=== PATIENT | female | born 1935 | race Caucasian/White ===

== ENCOUNTER 2019-08-22 12:40 | Inpatient (IN) ==
[2019-08-22] MEDS ORDERED: DILAUDID IV ONE (13:19)
[2019-08-22] MEDS ORDERED: ZOFRAN IV ONE (13:44)
--- NOTE | 2019-08-22 13:46 | Diag Imaging Result Doc PS360 ---
EXAM: CHEST-1 VIEW 08/22/2019 HISTORY: workup TECHNIQUE: AP chest COMMENT: There are no previous studies available for comparison. The thoracic spine is curved with convexity to the left. The heart size and pulmonary vascularity are within normal limits. There is an apparent old fracture of the lateral right third rib and possibly several of the posterior right ribs. There is generalized osteopenia. There are some calcified granulomata in the lower lobes. IMPRESSION: No acute abnormality. Electronically signed by Javier Adams 08/22/2019 1:44 PM
--- NOTE | 2019-08-22 13:47 | Diag Imaging Result Doc PS360 ---
EXAM: XRAY PELVIS W/HIP 2-3VW RT 08/22/2019 HISTORY: R hip pain/s/p fall TECHNIQUE: AP pelvis and right hip four views COMMENT: There is a fracture of the femoral neck on the right. There is generalized osteopenia. IMPRESSION: Right femoral neck fracture. Electronically signed by Javier Adams 08/22/2019 1:45 PM
--- NOTE | 2019-08-22 14:04 | EKG Report ---
Test Performed on : 08/22/2019 1:51:30 PM Test Reason : FALL Blood Pressure : / mmHG Vent. Rate : 101 BPM Atrial Rate : 101 BPM P-R Int : 134 ms QRS Dur : 072 ms QT Int : 356 ms P-R-T Axes : 079 072 072 degrees QTc Int : 461 ms Sinus tachycardia. Otherwise normal ECG No previous ECGs available Unconfirmed Result
--- NOTE | 2019-08-22 14:12 | PROVIDER DOCUMENTATION ---
This chart was entered by Danika Champion Scribe, acting as scribe for Seema Mckeon MD. HPI-Musculoskeletal Pain/Inj - GENERAL Stated Complaint: FALL Time Seen by Provider: 08/22/19 13:12 Source: patient - HX OF PRESENT ILLNESS-MUSKULOSKELTAL Nature of Presenting Problem: Patient is a 83 year old female who presents to the ED via EMS with right hip pain. States she tripped and fell landing on her right hip. Does not report any other injuries. Quality of Pain: reports: aching Severity in ED: mild Onset/Duration: just prior to arrival Timing: still present Any recent injury?: Yes (fall) Locality of Occurance: Home Similar Symptoms Previously?: No Recently seen or treated by another doctor?: No - FALL INJURY Location of Pain/Injury: reports: other (right hip) Pain Radiation: reports: no radiation Reason for Fall: reports: tripped Loss of Consciousness: no loss of consciousness - HIP/PELVIS PAIN/INJURY Hip Pain Location: reports: hip (R) Pain Radiation: reports: no radiation Context / Method of Injury: reports: fall - LOWER EXTREMITY PAIN/INJURY Lower Extremities Pain: hip: right Context / Method of Injury: reports: fell Review of Systems - Adult - REVIEW OF SYSTEMS - ADULT Constitutional: reports: no symptoms reported Eyes: reports: no symptoms reported Ears, Nose, Mouth & Throat: reports: no symptoms reported Cardiovascular: reports: no symptoms reported Respiratory: reports: no symptoms reported Gastrointestinal: reports: no symptoms reported Genitourinary: reports: no symptoms reported Musculoskeletal: reports: see HPI, other (right hip pain). denies: back pain, neck pain Integumentary: reports: no symptoms reported Neurological: reports: no symptoms reported Psychiatric: reports: no symptoms reported Endocrine: reports: no symptoms reported Hematologic/Lymphatic: reports: no symptoms reported Allergic/Immunologic: reports: no symptoms reported All Other Systems: Reviewed and Negative Past History - Adult - PAST MEDICAL HISTORY-ADULT Review of Records: reports: Old Records Reviewed, Nursing Assessment Review, Medications Reviewed, Social history reviewed & non-contributory. Major Childhood Illnesses: reports: denies history Cardiovascular: reports: HTN Respiratory: reports: denies history Gastrointestinal: reports: GERD Obstetrical/Gynecological: reports: denies history Genitourinary: reports: denies history Musculoskeletal: reports: denies history Neurological: reports: denies history Endocrine/Immune: reports: denies history Other Conditions: reports: denies history - PRIOR SURGERIES/PROCEDURES Surgical/Procedure History: reports: reviewed, not pertinent - IMMUNIZATION STATUS Childhood Immunizations: See Nurse Assessment Flu Vaccine: See Nurse Assessment - FAMILY HISTORY Family History: reviewed, not pertinent - SOCIAL HISTORY Smoking: denies Substance Use: denies Living Situation: family Physical Exam-Injury Related - Physical Exam-Injury Related Initial Vital Signs Reviewed: Yes General Appearance: alert, no apparent distress. negative: lethargic Respiratory: chest non-tender, lungs clear, normal breath sounds. negative: rhonchi, wheezing Cardiovascular: regular rate, rhythm, no gallop. negative: systolic murmur Abdominal Exam: normal bowel sounds, non tender, soft. negative: rigid Extremity: other (external rotation to right leg. decreased ROM to right leg due to pain in right hip). negative: swelling Integumentary: normal color, warm/dry. negative: ecchymosis, abrasion, laceration Neurologic: grossly normal. negative: aphasia, facial droop Psych/Mental Status: normal mood/affect, oriented x 3. negative: anxious Progress - PLAN OF CARE/RESULTS Progress/Plan/Lab Results: Orders Category Date Time Status Admit [facility] Routine AdmDCTranf 08/22/19 16:21 Active Activity - Strict Bedrest ORDERED Care 08/22/19 16:21 Completed Intake and Output-Strict ORDERED Care 08/22/19 16:21 Active Nursing- Assist w/ IS as order ORDERED Care 08/22/19 16:21 Active Nursing- MD Consult Request ROUTINE Care 08/22/19 16:21 Completed Nursing- Obtain EKG ONCE Care 08/22/19 13:17 Active Vital Signs Order Q 8-HR ASSESS Care 08/22/19 16:21 Active Z-Document. for Tele Applied ORDERED Care 08/22/19 16:21 Completed Physician/Provider Consults Routine Cons 08/22/19 16:21 Ordered Heart Healthy Diet Diet 08/22/19 16:21 Completed NPO Diet 08/23/19 00:01 Completed CHEST-1 VIEW [RAD] Stat Exams 08/22/19 13:17 Completed XRAY PELVIS W/HIP 2-3VW RT [RAD] Stat Exams 08/22/19 13:17 Completed CBC WITH DIFF [HEME] Routine Lab 08/23/19 05:50 Completed CBC WITH ELECTRONIC DIFF [HEME] Stat Lab 08/22/19 14:00 Completed COMPREHENSIVE METABOLIC PANEL [CHEM] Routine Lab 08/23/19 05:50 Completed COMPREHENSIVE METABOLIC PANEL [CHEM] Stat Lab 08/22/19 14:00 Completed MAGNESIUM [CHEM] Routine Lab 08/23/19 05:50 Completed PROTIME WITH INR [COAG] Stat Lab 08/22/19 14:00 Completed PTT [COAG] Stat Lab 08/22/19 14:00 Completed 0.9% Sodium Chloride Inj [Ns] 1,000 ml Med 08/23/19 00:01 Discontinued IV 75 mls/hr Acetaminophen [Tylenol] Med 08/22/19 16:21 Active 650 mg PO Q6H PRN PRN Amlodipine [Norvasc] Med 08/23/19 09:00 Active 5 mg PO DAILY Cyclobenzaprine [Flexeril] Med 08/22/19 21:00 Discontinued 10 mg PO QHS Dicyclomine [Bentyl] Med 08/22/19 16:21 Active 20 mg PO TID PRN PRN Fluoxetine [Prozac] Med 08/23/19 09:00 Active 20 mg PO DAILY Hydromorphone [Dilaudid] Med 08/22/19 13:19 Discontinued 1 mg IV NOW ONE Morphine Med 08/22/19 16:21 Discontinued 2 mg IV Q4H PRN PRN Omeprazole [Prilosec] Med 08/23/19 07:00 Active 40 mg PO DAILY@0700 Ondansetron [Zofran] Med 08/22/19 13:44 Discontinued 4 mg IV NOW ONE Ondansetron [Zofran] Med 08/22/19 16:21 Active 4 mg IV Q4H PRN PRN Incentive Spirometer Routine Oth 08/22/19 16:21 Completed Oxygen Device Routine Oth 08/22/19 16:21 Completed EKG [EKG] Stat Ther 08/22/19 13:17 Draft Transfer/Admit Order [TRANSFER] Routine Transfer 08/22/19 15:16 Completed Result Diagrams: 08/26/19 06:39 08/24/19 06:00 - EKG 1 Time of EKG reading by physician:: 13:56 EKG Read and Signed by:: Seema Mckeon (tachycardia, otherwise normal) EKG Interpretation (*Must complete 3 of following elements*): Normal Rate: 101 Rhythm: NSR with tachycardia [place]: normal QRS: normal SC Interval: normal Prior EKG Comparison: no prior EKG - XRAY 1 XRAY Study: Hip, Femur (EXAM: XRAY PELVIS W/HIP 2-3VW RT 08/22/2019 HISTORY: R h ip pain/s/p fall TECHNIQUE: AP pelvis and right hip four views COMMENT: There is a fracture of the femoral neck on the right. There is generalized osteopenia. IMPRESSION: Right femoral neck fracture. Electronically signed by Javier Adams 08/22/2019 1:45 PM 08/22/19 1345) Impression: See EMR Report 2 XRAY Study: Chest Impression: See EMR Report (EXAM: CHEST-1 VIEW 08/22/2019 HISTORY: workup TECHNIQUE: AP chest COMMENT: There are no previous studies available for comparison. The thoracic spine is curved with convexity to the left. The heart size and pulmonary vascularity are within normal limits. There is an apparent old fracture of the lateral right third rib and possibly several of the posterio r right ribs. There is generalized osteopenia. There are some calcified granulomata in the lower lobes. IMPRESSION: No acute abnormality. Electronically signed by Javier Adams 08/22/2019 1:44 PM) - CONSULTS/PCP/HOSPITALIST Notification #1 *Consult/PCP/Hospitalist*: PA for Dr. Hahn Time Discussed: 14:27 Consult Disposition: Admit, other (will see on the floor. can eat tonight) #2 Consult: Admit to hospitalist Time Discussed: 15:15 Consult Disposition: Will see in ED Departure - Departure Date of Disposition Decision: 08/22/19 Time of Disposition Decision: 14:13 DIAGNOSIS: Femoral neck fracture Disposition: ADMITTED INPATIENT 09 Certified Medical Emergency: Emergent Condition: Stable - Critical Care Note This patient required my direct & personal management of CC.: No Attestation - Physician/ BAHMAN Attestation Patient care was provided by Advanced Practice Provider:: No The physician spent face to face time with patient:: Yes Advanced Practice Provider documentation review:: Supervising physician onsite and consulted in the evaluation and care of this patient. The physician did have a face to face encounter with the patient. This chart was documented by the indicated scribe, (Danika Champion, [place]) and accurately reflects the services I performed and decisions made by me, Seema Mckeon MD, as attested by the provider's signature.
[2019-08-22 14:27] LABS: BASO# 0.02 X1000 (0.0-0.2); BASO% 0.1 % (0.0-0.8); EOS# 0.02 X1000 (0.0-0.7); EOS% 0.1 % (0.0-10.0); HEMATOCRIT 40.2 % (37.0-47.0); HEMOGLOBIN 13.1 g/dL (12.0-16.0); IMM GRAN# 0.06 X1000 (0.0-0.04); IMM GRAN% 0.3 % (0.0-0.5); LYMPH# 0.95 X1000 (1.2-3.4); LYMPH% 5.3 % (20.5-51.1); MCH 30.1 PG (27-31); MCHC 32.6 g/dL (33-37); MCV 92.4 FL (81-99); MONO% 4.5 % (1.7-9.3); MPV 13.1 FL (7.4-10.4); NEUT# 15.92 X1000 (1.4-6.5); NEUT% 89.7 % (42.2-75.2); PLT 144 X1000 (130-400); RBC 4.35 XMIL (4.2-5.4); RDW 13.6 % (11.5-14.5); WBC 17.77 X1000 (4.8-10.8)
[2019-08-22 14:48] LABS: ALB/GLOB RATIO 1.7; ALBUMIN 3.9 g/dL (3.5-5.0); CALCIUM 9.3 mg/dL (8.8-10.2); CREATININE 0.9 mg/dL (0.5-0.9); POTASSIUM 3.4 mmol/L (3.5-5.1); TOTAL BILIRUBIN 0.43 mg/dL (0.20-1.00); TOTAL PROTEIN 6.2 g/dL (6.3-8.3)
[2019-08-22 14:59] LABS: INR 1.03; PROTIME 13.6 Seconds (11.0-16.0)
[2019-08-22 15:00] LABS: PTT 29.2 Seconds (22.3-41.8)
[2019-08-22 16:05] LABS: URINE SOURCE CATH
[2019-08-22 16:13] LABS: BILIRUBIN URINE NEGATIVE (NEGATIVE); BLOOD URINE NEGATIVE (NEGATIVE); COLOR YELLOW; GLUCOSE URINE NEGATIVE (NEGATIVE); KETONE URINE 10 mg/dL (NEGATIVE); LEUKOCYTES URINE NEGATIVE (NEGATIVE); NITRITE URINE NEGATIVE (NEGATIVE); PH URINE 6.5; PROTEIN URINE 50 mg/dL (NEGATIVE); TURBIDITY URINE CLEAR (CLEAR); UR EPITHELIAL CELLS <10 /HPF (<10); URINE BACTERIA NEGATIVE /HPF; URINE RBC <10 /HPF (<10); URINE WBC <10 /HPF (<10); UROBILINOGEN URINE NORMAL (NORMAL)
[2019-08-22] MEDS ORDERED: TYLENOL PO PRN (16:21)
[2019-08-22] MEDS ORDERED: BENTYL PO PRN (16:21)
[2019-08-22] MEDS ORDERED: KLOR-CON PO ONE (17:05)
[2019-08-22] MEDS ORDERED: FLEXERIL PO PRN (17:11)
[2019-08-22] MEDS ORDERED: BLISTEX MEDICATED BERRY LIP BALM TOP PRN (18:03)
[2019-08-22] MEDS: MORPHINE IV PRN (18:37)
[2019-08-22] MEDS: ZOFRAN IV PRN (18:37)
[2019-08-22] MEDS: NS 1,000 ML IV SCH (18:38)
[2019-08-22] MEDS ORDERED: FLEXERIL PO SCH (21:00)
--- NOTE | 2019-08-22 22:14 | HISTORY AND PHYSICAL ---
PRIMARY CARE PROVIDERS: Yo Red MD. CHIEF COMPLAINT: Fall, right hip pain. HISTORY OF PRESENT ILLNESS: Ms. Carpio is an 83-year-old female who carries a past medical history of hypertension and dementia who reports that she was out in her backyard today. She got tripped on something and fell and was down on the wet concrete for at least 30 minutes up to an hour until her got back from [facility]. She reports she did not hit her head. She did not lose consciousness. There was no chest pain, dizziness or syncope prior to her fall. Workup in the ED showed a right femoral neck fracture. Laboratory data shows an elevated white count that appears to be reactive. Mild hypokalemia. She will be admitted to the surgical telemetry floor and will undergo her procedure in a.m. by Dr. Hahn. PAST MEDICAL HISTORY: Hypertension, dementia. PAST SURGICAL HISTORY: Cyst removal under her right cheek as a baby. SOCIAL HISTORY: is at bedside. No tobacco, alcohol or illicit drug use. FAMILY HISTORY: Reviewed and noncontributory. ALLERGIES: Codeine, Levaquin and Lexapro. HOME MEDICATIONS: Norvasc, Flexeril, Bentyl, Cymbalta, meloxicam and Prilosec. REVIEW OF SYSTEMS: Completely negative except for those mentioned in HPI. PHYSICAL EXAMINATION: VITAL SIGNS: Temperature is 97.5 degrees, heart rate 99, respirations 18, blood pressure 151/97, O2 is 95% on room air. GENERAL: Ms. Carpio is an 83-year-old female who is lying in the bed in no acute distress. HEENT: Atraumatic, normocephalic. PERRL. NECK: Supple. Trachea midline. CARDIOVASCULAR: S1, S2 appreciated. No murmurs, gallops, or rubs noted. RESPIRATORY: Lung sounds clear bilaterally. GI: Is soft, nontender, nondistended. Positive bowel sounds in 4 quadrants. EXTREMITIES: External rotation on the right leg. NEUROLOGIC: Patient is awake, alert, oriented. However, after receiving Dilaudid, she does feel that she is a little bit altered and unaware of the time. She does feel like it is slipping away from her. DIAGNOSTICS: Right hip and pelvis x-ray shows a right femoral neck fracture. LABORATORY DATA: White count 17, hemoglobin and hematocrit 13 and 40, platelet count is 144,000. Sodium 136, potassium 3.4, BUN 18, creatinine 0.9, blood glucose is 113. Urinalysis is negative. ASSESSMENT AND PLAN: 1. Status post mechanical fall. She has a right femoral neck fracture. Dr. Hahn has been consulted. She will be n.p.o. after midnight. Procedure in the a.m. We will continue with IV pain medication and antiemetics. 2. Hypertension. We will continue home Norvasc. 3. Reported dementia. 4. Mild hypokalemia. We will replenish p.o. Recheck in a.m. 5. Leukocytosis likely reactive. Chest x-ray was negative. 6. Further recommendation to follow physician evaluation, laboratory and diagnostic data. Dictated by SANDHYA Thorne for Raudel Voss MD cc: MD Yo Mcqueen MD Robert S. Tapscott, MD
--- NOTE | 2019-08-23 00:44 | HISTORY AND PHYSICAL ---
ADDENDUM I have seen and examined Ms. Carpio today. Her daughter was at the bedside at the time of the encounter. Ms Carpio presents because of status post mechanical fall. She thinks she probably entangled her feet with her flip-flop, fell down and sustained an injury to the right hip. She was brought into the emergency room. She was evaluated and found to have a right femoral neck fracture. The patient also has generalized osteopenia on the imaging study. OBJECTIVE: Vital signs: Blood pressure is 144/65, pulse of 90, respirations 18, temperature is 97.6 degrees. General: Shows Ms Carpio is an 83-year-old, elderly, female. She has looks well built. HEENT: Mucosa is pink but slightly dry. Anicteric. Acyanotic. Neck: Supple. Chest: Clear. Cardiovascular: Regular rate and rhythm. Abdomen: Soft. No hepatosplenomegaly. Extremities: The right lower extremity looks shortened and is laterally extended. LABORATORY DATA: Has also been reviewed. Slight leukocytosis, which I think is probably reactive. Potassium is slightly low. IMAGING STUDIES: Have also been reviewed, including a chest x-ray which showed no acute abnormality. A pelvic x-ray has been reviewed. An EKG shows a normal sinus rhythm, slightly tachycardic but at baseline was a lot of fatty farts, but no acute changes found. HOME MEDICATIONS: Have also been reviewed. ASSESSMENT: 1. Status post mechanical fall resulting into a right femoral neck fracture. Patient is evaluated by Orthopedics, there is a plan for intervention tomorrow afternoon. 2. Hypertension. We will continue with home medications including amlodipine, however, this will be withheld tomorrow morning for surgery. 3. Clinical volume depletion. Will continue with IV fluids. 4. Leukocytosis. Presumably reactive. 5. Hypokalemia. We will replace this and repeat it tomorrow morning. PERIOPERATIVE EVALUATION: Ms. Carpio is an 83-year-old female. She has a history of chronic essential hypertension which is controlled. No heart issues. No kidney problems. Never had any long-term lung issues and she is not on any anticoagulants. Ms Carpio is a low risk patient for an intermediate nonvascular surgical procedure. I think the procedure is urgent to maintain adequate functionality. We recommend surgery to proceed. Please refer to the details of the history and physical that have been dictated by the [facility] TE[employer]ER. I have reviewed this and I have also discussed the plan with her. cc: Raudel Voss MD [facility]PITALBhavin
--- NOTE | 2019-08-23 02:09 | ORTHOPAEDICS CONSULTATION ---
DATE: 08/22/2019 CHIEF COMPLAINT: Right hip pain. HISTORY OF PRESENT ILLNESS: Patient is an 83-year-old female who is status post fall landing on the right hip earlier today. She developed immediate pain and discomfort in her right hip. She denies loss consciousness. She presented to the emergency room, x-rays were obtained and revealed a right displaced femoral neck fracture. She was admitted to the hospital and Orthopedic consultation was requested. HOME MEDICATIONS: Meloxicam 7.5 mg p.o. daily, Bentyl 10 mg p.o. t.i.d. p.r.n., fluoxetine HCL 20 mg p.o. daily, omeprazole 40 mg p.o. daily, amlodipine besylate 5 mg p.o. daily, Flexeril 10 mg p.o. at bedtime. ALLERGIES: Codeine, levofloxacin, escitalopram. PAST MEDICAL HISTORY: Hypertension, gastroesophageal reflux disease. PAST SURGICAL HISTORY: None. PHYSICAL EXAMINATION: General: Patient is awake, alert, and cooperative with exam. Musculoskeletal: Cervical spine is nontender to palpation. Bilateral upper extremities nontender to palpation throughout. Good range of motion. Her right lower extremity is shortened and externally rotated. There is tenderness to palpation in the right hip. Pain pain with gentle movement. Calf is soft. She has active dorsiflexion and plantar flexion. She is grossly neurovascularly intact. The left lower extremity and nontender palpation along the hip, knee, or ankle. She has active dorsiflexion and plantar flexion. Neurovascularly intact distally. IMAGING: X-rays of right hip revealed a right displaced femoral neck fracture. IMPRESSION: Right displaced femoral neck fracture. PLAN: At this point, discussed treatment options with patient and family. At this time, would recommend to proceed with hemiarthroplasty of the right hip. Risks, benefits of surgery were explained, including risks of anesthesia, , bleeding, infection, fairly to relieve pain, postoperative stiffness, nerve injury, blood clots, dislocation and other imponderables. All questions were answered. The patient and family agree with treatment plan. I will proceed with surgery tomorrow, if she is medically cleared. cc: Yo Hahn MD
[2019-08-23] MEDS: MORPHINE IV PRN ×3 (02:36→23:36)
[2019-08-23] MEDS: PRILOSEC PO SCH (06:46)
[2019-08-23 06:52] LABS: BASO# 0.02 X1000 (0.0-0.2); BASO% 0.2 % (0.0-0.8); EOS# 0.02 X1000 (0.0-0.7); EOS% 0.2 % (0.0-10.0); HEMOGLOBIN 12.2 g/dL (12.0-16.0); LYMPH% 14.9 % (20.5-51.1); MCH 29.9 PG (27-31); MCHC 31.3 g/dL (33-37); MCV 95.6 FL (81-99); MONO# 0.78 X1000 (0.11-0.59); MONO% 8.3 % (1.7-9.3); MPV 12.6 FL (7.4-10.4); NEUT# 7.18 X1000 (1.4-6.5); NEUT% 76.4 % (42.2-75.2); PLT 128 X1000 (130-400); RBC 4.08 XMIL (4.2-5.4); RDW 13.9 % (11.5-14.5)
[2019-08-23] MEDS: NS 1,000 ML IV SCH ×4 (07:02→23:37)
[2019-08-23 07:08] LABS: ALB/GLOB RATIO 2.1; ALBUMIN 3.9 g/dL (3.5-5.0); CALCIUM 9.2 mg/dL (8.8-10.2); CREATININE 0.9 mg/dL (0.5-0.9); POTASSIUM 4.9 mmol/L (3.5-5.1); TOTAL BILIRUBIN 0.65 mg/dL (0.20-1.00); TOTAL PROTEIN 5.8 g/dL (6.3-8.3)
[2019-08-23] MEDS: PROZAC PO SCH (08:18)
[2019-08-23] MEDS: NORVASC PO SCH (08:18)
--- NOTE | 2019-08-23 11:43 | ORTHOPAEDICS PROGRESS NOTE ---
DATE: 08/23/2019 SUBJECTIVE: The patient is a 83-year-old female who is 1 day status post fall sustaining a right displaced femoral neck fracture. She is currently resting comfortably this morning. PHYSICAL EXAMINATION: Continues expected tenderness to palpation along the hip. Compartments are soft. LABORATORY: Hemoglobin 12.2 and hematocrit is 39.0. IMPRESSION: Right displaced femoral neck fracture. PLANS: I will plan on proceeding with hemiarthroplasty right hip. Risks and benefits discussed. All questions were answered with the patient and her . cc: Yo Hahn MD
[2019-08-23] MEDS ORDERED: DIPRIVAN 1% ONE (11:54)
[2019-08-23] MEDS ORDERED: XYLOCAINE-MPF 2% ONE (11:54)
[2019-08-23] MEDS ORDERED: KEFZOL 1 GM/D5W 1 GM/50 ML IVPB ONE (14:20)
[2019-08-23] MEDS ORDERED: FENTANYL ONE (14:34)
[2019-08-23] MEDS ORDERED: ZOFRAN ONE (15:12)
[2019-08-23] MEDS ORDERED: DECADRON ONE (15:12)
--- NOTE | 2019-08-23 15:16 | PROGRESS NOTE ---
DATE: 08/23/2019 SUBJECTIVE: This morning Ms. Carpio referred to be doing well. was at the bedside at the time of the encounter. She still has some pain in the right hip. She is pending surgery. OBJECTIVE: Vital Signs: Blood pressure is 135/74, pulse of 92, respirations 16, temperature 98.6 degrees. General: Ms. Carpio is an 83-year-old elderly female. She is in bed, in no distress. HEENT: Mucosa is pink and moist. Anicteric, acyanotic. Neck: Supple. Chest: Clear to auscultation. Cardiovascular: Regular rate and rhythm. Gastrointestinal: Abdomen is soft, nontender. Bowel sounds present. No hepatosplenomegaly. Extremities: Right lower extremity is slightly shortened and laterally extended. Tenderness palpating the right hip. Left lower extremity is unremarkable. LABORATORY DATA: CBC is unremarkable. The WBC has normalized. Chemistry is also unremarkable. ASSESSMENT AND PLAN: 1. Status post mechanical fall resulting into a right femoral neck fracture. Patient is pending orthopedic intervention today. 2. Hypertension, controlled. 3. Clinical volume depletion, improving. We will continue with the intravenous fluids. 4. Reactive leukocytosis, resolved. 5. Hypokalemia, resolved. cc: Raudel Voss MD MTDD
[2019-08-23] MEDS ORDERED: MILK OF MAGNESIA PO PRN (17:06)
[2019-08-23] MEDS ORDERED: ZOFRAN IV PRN (17:06)
[2019-08-23] MEDS ORDERED: OXY IR PO PRN (17:06)
[2019-08-23] MEDS ORDERED: MORPHINE IV PRN (17:06)
--- NOTE | 2019-08-23 17:09 | Diag Imaging Result Doc PS360 ---
EXAM: HIP 1 VIEW RIGHT INDICATION: Bipolar hip TECHNIQUE: One view COMPARISON: 08/22/2019 FINDINGS: There has been a recent right hip arthroplasty. The arthroplasty hardware is in the expected position. There is no evidence of periprosthetic fracture. Skin ashanti are seen lateral to the hip. IMPRESSION: Satisfactory postoperative hip. Electronically signed by Jono Juarez 08/23/2019 5:07 PM
[2019-08-23] MEDS ORDERED: HALDOL IV PRN (17:15)
[2019-08-23] MEDS: TYLENOL PO SCH ×2 (18:02→21:24)
[2019-08-23] MEDS: PERIDEX MT SCH (21:24)
[2019-08-23] MEDS: COLACE PO SCH (21:24)
[2019-08-23] MEDS: KEFZOL 1 GM/D5W 1 GM/50 ML IVPB IV SCH ×2 (21:25→23:36)
--- NOTE | 2019-08-23 21:59 | OPERATIVE NOTE ---
PROCEDURE DATE: 08/23/2019 PREOPERATIVE DIAGNOSIS: Right displaced femoral neck fracture. POSTOPERATIVE DIAGNOSIS: Right displaced femoral neck fracture. PROCEDURE: Hemiarthroplasty right hip with a DePuy Actis size 5 press-fit prosthesis, a 28 +5 femoral head and a 28 x 43 bipolar head. SURGEONS: Yo Hahn MD 1ST GASKET FORMER: Adriana Ospina, who was necessary for proper positioning, retraction and manipulation of the extremity during the entire case. SECOND GASKET FORMER: Byron Garcia RN. ANESTHESIA: Spinal. IV FLUIDS: 1000 mL lactated Ringer's. BLOOD LOSS: 75 mL. COMPLICATIONS: None. INDICATIONS: The patient is an 83-year-old female who is 1 day status post fall sustaining a right displaced femoral neck fracture. She was in the emergency room and x-rays were obtained and revealed a right displaced femoral neck fracture. She has been in the hospital and after obtaining preoperative medical clearance, recommendation to proceed with hemiarthroplasty right hip was offered. Risks and benefits of surgery were explained, including the risks of anesthesia, , bleeding, infection, failure to relieve pain, postop stiffness, nerve injury, blood clots, and other imponderables. All questions answered. The patient and family wished to proceed with surgery. DETAILS OF THE OPERATION: The patient was taken to the operating room and placed supine on the operating table. Once adequate anesthesia was obtained, the patient was placed in a left lateral decubitus position on a lambert bag with axillary roll under the right lower extremity. The right hip was subsequently prepped and the lower extremity subsequently prepped and draped in sterile fashion. Attention then turned to the lateral aspect of the hip and a longitudinal incision was made and hemostasis was obtained using electrocautery. The gluteus jaya and fascia татьяна was incised longitudinally. Charnley retractors were then placed. The piriformis tendon was identified and a stay suture was placed. The piriformis tendon along with short external rotators were then excised off its insertion off the posterior aspect of the femur and retracted posteriorly. A T- shaped capsulotomy was then performed. Number 1 Vicryl was placed at the corners of the posterior capsule. A corkscrew was used to remove the femoral head. After this was performed, attention was then turned to the femur. Approximately 1 fingerbreadth proximal to the lesser trochanter, the femoral neck cut was performed. A box cutting guide was then placed in the intramedullary canal followed by a starting reamer. Sequential broaching was then performed up to a size 5. A calcar planer was then placed. A trial femoral neck and head size was then performed and a 28 +5 femoral head with a 28 x 43 bipolar head appeared to be the correct size. The trial implants were removed. Copious irrigation was then performed once again with pulsatile lavage. A size 5 DePuy Actis press-fit stem was impacted and had good fit. This was followed by a 28 +5 femoral head with the 28 x 43 bipolar head impacted on the stem. The hip was then reduced, carried through range of motion. It had excellent stability and range of motion. The wound was copiously with pulsatile lavage. A #1 Vicryl was used to repair the arthrotomy followed by #1 Vicryl to repair the piriformis tendon. The wound was copiously once again. The Charnley retractor was then removed. A #1 Vicryl was then used to repair the gluteus jaya and fascia татьяна in a running fashion. A 2-0 Vicryl was then used to repair the subcutaneous tissues, followed by skin ashanti. Adaptic, sterile 4 x 4, ABD pad, and tape applied to the right hip. The patient tolerated the procedure well. No complications. Transferred to recovery room in stable condition. cc: Yo Hahn MD
[2019-08-24 06:37] LABS: HEMATOCRIT 34.8 % (37.0-47.0); HEMOGLOBIN 10.7 g/dL (12.0-16.0)
[2019-08-24] MEDS: PRILOSEC PO SCH (06:46)
[2019-08-24] MEDS: KEFZOL 1 GM/D5W 1 GM/50 ML IVPB IV SCH (06:46)
[2019-08-24] MEDS: TYLENOL PO SCH ×4 (06:46→21:10)
[2019-08-24] MEDS: XARELTO PO SCH (06:47)
[2019-08-24 07:23] LABS: CALCIUM 8.4 mg/dL (8.8-10.2); CREATININE 0.9 mg/dL (0.5-0.9); POTASSIUM 4.6 mmol/L (3.5-5.1)
[2019-08-24] MEDS: FERROUS SULFATE PO SCH (09:33)
[2019-08-24] MEDS: PROZAC PO SCH (09:33)
[2019-08-24] MEDS: NORVASC PO SCH (09:33)
[2019-08-24] MEDS: PERIDEX MT SCH ×2 (09:34→21:10)
--- NOTE | 2019-08-24 12:01 | ORTHOPAEDICS PROGRESS NOTE ---
DATE: 08/24/2019 SUBJECTIVE: Patient is 1 day status post hemiarthroplasty of the right hip. She is currently resting comfortably, some drowsiness this morning. PHYSICAL EXAMINATION: The patient's right lower extremity, her dressing is intact. Calf is soft. She does have active dorsiflexion and plantar flexion. LABS: Pending. IMPRESSION: Postoperative day number 1 status post hemiarthroplasty right hip. PLANS: At this point, begin mobilization with physical therapy, weight bearing as tolerated to the right lower extremity. We will plan on discharging start change her dressing tomorrow. cc: Yo Hahn MD
[2019-08-24] MEDS: NS 1,000 ML IV SCH (17:55)
--- NOTE | 2019-08-24 19:06 | PROGRESS NOTE ---
DATE: 08/24/2019 SUBJECTIVE: This morning Ms. Carpio referred to be doing well. Still mild pain in the right hip. was at the bedside at the time of the encounter. OBJECTIVE: Vital signs: Blood pressure is 119/82, pulse of 95, respirations 16, temperature 98.1 degrees. The patient was saturating 95% on room air. General: Ms. Carpio is an 83-year-old female. She was in bed. She is well nourished and well kept. HEENT: Mucosa was pink and moist. Anicteric. Acyanotic. Neck: Supple. Chest: Good air entry bilaterally. There were no crepitations, no rhonchi. No accessory muscle use. Cardiovascular: Regular rate and rhythm. No murmurs, no rubs, no gallops. GI: Abdomen was soft, nontender. Bowel sounds present. There was no hepatosplenomegaly. Extremities: The right lower extremity has a dressing over the lateral aspect, but is neurovascular intact. SUPERVISOR [employer]: Patient was awake, alert, and oriented. LABORATORY DATA: Hemoglobin is 10.7. Chemistry is completely normal. Surgical report from yesterday shows that a right hemiarthroplasty was done by Dr. Hahn. ASSESSMENT: 1. Status post mechanical fall, resulting in a right femoral neck fracture. Patient is status post a right hemiarthroplasty. Today is day 1 postop. Physical Therapy has been consulted. Orthopedics is still on board. There is a plan to potentially discharge Ms. Carpio to a rehab hopefully tomorrow. 2. Hypertension, controlled. 3. Clinical volume depletion on presentation, improved. 4. Reactive leukocytosis, resolved. 5. Electrolyte abnormality including hypokalemia, improved. cc: Raudel Voss MD
[2019-08-24] MEDS: COLACE PO SCH (21:10)
[2019-08-25] MEDS: PRILOSEC PO SCH ×2 (05:03→06:15)
[2019-08-25] MEDS: XARELTO PO SCH (05:03)
[2019-08-25] MEDS: TYLENOL PO SCH ×3 (05:03→21:52)
[2019-08-25 06:57] LABS: HEMATOCRIT 31.9 % (37.0-47.0); HEMOGLOBIN 9.9 g/dL (12.0-16.0)
[2019-08-25] MEDS: NORVASC PO SCH (10:52)
[2019-08-25] MEDS: PROZAC PO SCH (10:52)
[2019-08-25] MEDS: PERIDEX MT SCH ×2 (10:52→21:51)
[2019-08-25] MEDS: FERROUS SULFATE PO SCH (10:52)
--- NOTE | 2019-08-25 12:49 | ORTHOPAEDICS PROGRESS NOTE ---
DATE: 08/25/2019 SUBJECTIVE: The patient is an 83-year-old female who is 2 days status post hemiarthroplasty of the right hip. She is currently resting comfortably. This morning she has no complaints. PHYSICAL EXAMINATION: The patient's right lower extremity, her wound looks good. There are no signs or symptoms of infection. She has expected local ecchymosis along the lateral hip. Her calf is soft. She has active dorsiflexion plantar flexion. LABORATORY DATA: Her hemoglobin and hematocrit are pending this morning. Yesterday was 10.7 and 34.8. IMPRESSION: Postoperative day number 2, status post hemiarthroplasty of right hip. PLAN: At this point, the patient will continue progress with physical therapy. hospitality services manager have been consulted for inpatient rehabilitation. Patient is stable from an orthopedic standpoint. cc: Yo Hahn MD
[2019-08-25] MEDS: COLACE PO SCH (21:51)
[2019-08-26] MEDS: TYLENOL PO SCH ×3 (05:56→21:36)
[2019-08-26] MEDS: PRILOSEC PO SCH ×2 (05:56→07:45)
[2019-08-26] MEDS: ZOFRAN IV PRN (05:57)
[2019-08-26] MEDS: XARELTO PO SCH (05:57)
[2019-08-26] MEDS: PROZAC PO SCH (08:26)
[2019-08-26] MEDS: NORVASC PO SCH (08:26)
[2019-08-26] MEDS: FERROUS SULFATE PO SCH (08:27)
[2019-08-26] MEDS: PERIDEX MT SCH ×2 (08:27→21:36)
--- NOTE | 2019-08-26 19:38 | PROGRESS NOTE ---
DATE: 08/26/2019 SUBJECTIVE: This morning, Ms. Carpio refers to be doing well. Denies any new complaints. OBJECTIVE: Vital signs: Blood pressure is 153/74, pulse of 109, respirations 16, temperature is 98.5 degrees. General: Ms. Carpio is an 83-year-old, female. She is in bed in no distress. Mucosa is pink and moist. Anicteric, acyanotic. Neck: Supple. Chest: Good air entry bilaterally. No crepitations. No rhonchi. Cardiovascular: Regular rate and rhythm. There are no murmurs, no rubs, no gallops. Gastrointestinal: Abdomen is soft, nontender. Bowel sounds are present. Extremities: No pedal edema. Central nervous system: Awake, alert, and oriented. Musculoskeletal: Patient has an incision on the right hip laterally which is affronted with clips. It looks remarkably clean. Minimal swelling over the dressing. The right lower extremity is neurovascularly intact. LABORATORY DATA: Hemoglobin is 10.0. ASSESSMENT/PLAN: 1. Status post mechanical fall resulting in a right femoral neck fracture. Patient is status post right hemiarthroplasty. Today is day 2 postoperative. Physical Therapy and Orthopedics on board. The patient will be going to rehab on Wednesday. 2. Hypertension. Controlled. 3. Reactive leukocytosis. 4. Electrolyte abnormality including hypokalemia. Resolved. 5. Disposition. Ms. Carpio is pending a rehab placement. I understand her choice is [facility]. We are waiting on final arrangements on Wednesday. cc: Raudel Voss MD MTDD
[2019-08-26] MEDS: COLACE PO SCH (21:36)
[2019-08-27] MEDS: ZOFRAN IV PRN (03:51)
[2019-08-27] MEDS: XARELTO PO SCH (05:16)
[2019-08-27] MEDS: PRILOSEC PO SCH ×2 (05:16→07:41)
[2019-08-27] MEDS: TYLENOL PO SCH ×3 (05:16→21:35)
[2019-08-27] MEDS: PERIDEX MT SCH ×2 (08:22→21:36)
[2019-08-27] MEDS: NORVASC PO SCH (08:23)
[2019-08-27] MEDS: FERROUS SULFATE PO SCH (08:23)
[2019-08-27] MEDS: PROZAC PO SCH (08:23)
--- NOTE | 2019-08-27 09:50 | PROGRESS NOTE ---
DATE: 08/27/2019 SUBJECTIVE: This morning, Ms. Carpio referred to be doing well. No new complaints. was at the bedside at the time of the encounter. They are waiting eagerly to go to rehab tomorrow. OBJECTIVE: Vital Signs: Blood pressure is 144/67, pulse of 88, respirations are 16, temperature is 98.3 degrees. General Examination: Ms. Carpio is an 83-year-old, elderly, female. She was in bed. No distress. HEENT: Mucosa is pink and moist. Anicteric. Acyanotic. Neck: Supple. Chest: Clear to auscultation. No crepitations. No rhonchi. Cardiovascular: Regular rate and rhythm. GI: Abdomen is soft. Distended but nontender. Bowel sounds present. Extremities: No pedal edema. Distal pulses present. REGISTERED NURSING PROFESSOR: The patient is awake, alert, and oriented. Musculoskeletal: There is a dressing over the lateral right hip incision, which looks clean. The right lower extremity is neurovascularly intact. Laboratory Data: No laboratory data today. ASSESSMENT: 1. Status post mechanical fall resulting in a right femoral neck fracture. Patient is status post right hemiarthroplasty. Today is day 3. Physical therapy has been evaluating Ms. Carpio. Yesterday, she was able to do 250 feet with a front wheel walker, contact guard assist and full weightbearing. 2. Hypertension, controlled. 3. Electrolyte abnormality including hypokalemia on admission, resolved. 4. Reactive leukocytosis, resolved. 5. Disposition. We are pending final arrangements with the social and case management for rehab placement tomorrow. cc: Raudel Voss MD
[2019-08-27] MEDS: COLACE PO SCH (21:35)
[2019-08-28] MEDS: TYLENOL PO SCH ×2 (06:26→20:32)
[2019-08-28] MEDS: XARELTO PO SCH (06:26)
[2019-08-28] MEDS: PRILOSEC PO SCH (06:26)
[2019-08-28] MEDS ORDERED: MYLICON PO PRN (10:26)
[2019-08-28] MEDS: FERROUS SULFATE PO SCH (10:47)
[2019-08-28] MEDS: NORVASC PO SCH (10:47)
[2019-08-28] MEDS: PERIDEX MT SCH ×2 (10:47→20:31)
[2019-08-28] MEDS: PROZAC PO SCH (10:47)
--- NOTE | 2019-08-28 16:38 | PROGRESS NOTE ---
DATE: 08/28/2019 SUBJECTIVE: Today Ms. Carpio referred to be doing well. We are awaiting to hear any news from the insurance company for the disposition plan to rehab. The was at the bedside at the time of the encounter. OBJECTIVELY: Vital Signs: Blood pressure is 143/75, pulse of 93, respirations 16, temperature is 98 degrees. General: Ms. Brooks is an 83-year-old female. She is in bed, in no distress. Mucosa is pink and moist. Anicteric. Acyanotic. Neck: Supple. Chest: Good air entry bilaterally. There were no crepitations. No rhonchi. Cardiovascular: Regular rate and rhythm. No murmurs, no rubs, no gallops. Gastrointestinal: Abdomen is soft, nontender. Bowel sounds present. Extremities: No pedal edema. Distal pulses present. Central Nervous System: Patient is awake, alert, and oriented. Musculoskeletal: There is a dressing over the lateral right hip incision, which looks clean. The incision is affronted with surgical clips. Right lower extremity is neurovascularly intact. LABORATORY DATA: None for today. ASSESSMENT AND PLAN: 1. Status post mechanical fall resulting in a right femoral neck fracture. The patient is status post right hemiarthroplasty. Today is day 4. Patient is doing well with physical therapy. 2. Hypertension, controlled. 3. Electrolyte abnormality, including hypokalemia on admission, resolved. 4. Reactive leukocytosis, resolved. 5. Disposition. We are still pending insurance arrangements for rehab placement at [facility]. cc: Raudel Voss MD
[2019-08-28] MEDS: COLACE PO SCH (20:32)
[2019-08-29] MEDS: TYLENOL PO SCH ×2 (00:17→06:47)
[2019-08-29] MEDS: XARELTO PO SCH (06:46)
[2019-08-29] MEDS: PRILOSEC PO SCH (06:47)
[2019-08-29 08:13] VITALS: BP 135/64
--- NOTE | 2019-08-29 11:16 | DISCHARGE SUMMARY ---
ADMISSION DATE: 08/22/2019 DISCHARGE DATE: 08/29/2019 PRIMARY CARE PHYSICIAN: Dr. Yo perez. ADMISSION DIAGNOSES: 1. Status post mechanical fall resulting in a right femoral neck fracture. 2. Hypertension. 3. Clinical volume depletion. 4. Leukocytosis. 5. Hypokalemia. DISCHARGE DIAGNOSES: 1. Status post mechanical fall resulting in a right femoral neck fracture, status post right hemiarthroplasty, postoperative day 5. 2. Hypertension. 3. Electrolyte abnormalities, resolved. 4. Reactive leukocytosis, resolved. SUMMARY OF FINDINGS: This is an 83-year-old female who presented to the emergency room status post mechanical fall. Thinks that she probably entangled her feet with her flip-flop, fell down, and sustained an injury to her right hip. Was evaluated and found to have a right femoral neck fracture. She also had generalized osteopenia on the imaging study. She was admitted. We consulted orthopedics. She had a right hemiarthroplasty done and has done well. Physical therapy followed. Any electrolyte imbalances have been corrected. It is felt that she can safely be discharged to rehab now. DISCHARGE MEDICATIONS: Will include Tylenol 650 mg p.o. q.6 hours p.r.n., amlodipine 5 mg p.o. daily, Flexeril 10 mg p.o. at bedtime, dicyclomine 20 mg p.o. t.i.d. p.r.n., Colace 200 mg p.o. at bedtime, ferrous sulfate 325 mg p.o. with breakfast, fluoxetine 20 mg p.o. daily, milk of magnesia 30 mL p.o. daily p.r.n., omeprazole 40 mg p.o. daily, oxycodone IR 5 mg p.o. q.3 hours p.r.n., Xarelto 10 mg p.o. q.24, Mylicon 80 mg p.o. 4 times daily p.r.n. FOLLOWUP: She will follow up with her primary care physician and with orthopedics once she has completed her rehab stay. Appointments will be made at the time of discharge from rehab. All discharge instructions have been reviewed with the patient and she verbalized understanding. This is a 35 minute discharge. Dictated by SANDHYA Shelton for Farhan Rivera MD Addendum: Patient seen and examined by myself. Agree with SANDHYA note. It reflects my assessment and plan. Patient is being discharged from hospital in stable condition to rehab. Will be sen by PCP in a week upon rehab discharge. cc: SANDHYA Shelton MD Robert Hall, MD [email or web address]
[2019-08-29] MEDS: PROZAC PO SCH (11:26)
[2019-08-29] MEDS: PERIDEX MT SCH (11:26)
[2019-08-29] MEDS: FERROUS SULFATE PO SCH (11:26)
[2019-08-29] MEDS: NORVASC PO SCH (11:26)
== END 2019-08-29 12:04 | DRG 470 ==
LOC: SUPCPDRO → ED 12:40 → SUATTDRO 15:50 → EDIPHOLD 15:50 → 4N 16:04
PROVIDERS: ATTEND Internal Medicine